=== PATIENT | male | born 1975 | race Two or more races ===

== ENCOUNTER 2017-07-29 10:46 | Inpatient (IN) | payer BC ==
[2017-07-23 12:40] VITALS: BMI 36.9
[2017-07-29] MEDS ORDERED: PROPOFOL 20 ML ONE (15:08)
[2017-07-29] MEDS ORDERED: DEXAMETHASONE SOD PHOSPHATE/PF 10 MG/ML SDV ONE (15:34)
[2017-07-29] MEDS ORDERED: BUPIVACAINE HCL/PF (5 MG/ML) 30 ML VIAL IJ ONE (15:34)
[2017-07-29] MEDS ORDERED: MIDAZOLAM HCL 2 MG/2 ML SINGLE DOSE VIAL ONE ×3 (15:34→17:19)
[2017-07-29] MEDS ORDERED: ONDANSETRON 4 MG/2 ML VIAL IVPUSH PRN ×2 (16:20→19:43)
[2017-07-29] MEDS ORDERED: oxyCODONE HCL 5 MG TABLET PO PRN (16:20)
[2017-07-29] MEDS ORDERED: LACTATED RINGERS SOLUTION 1,000 ML IV SCH ×2 (16:30→20:00)
[2017-07-29] MEDS ORDERED: VANCOMYCIN 1,000 MG VIAL (RESTRICTED TO ID ONLY) ONE (16:35)
[2017-07-29] MEDS ORDERED: ceFAZolin SODIUM 1 GM VIAL ONE (16:35)
[2017-07-29] MEDS ORDERED: DEXAMETHASONE SOD PHOSPHATE 4 MG/1 ML VIAL ONE (16:46)
[2017-07-29] MEDS ORDERED: ONDANSETRON 4 MG/2 ML VIAL ONE (16:46)
[2017-07-29] MEDS ORDERED: KETOROLAC TROMETHAMINE 30 MG/1 ML VIAL ONE (16:46)
[2017-07-29] MEDS ORDERED: TRANEXAMIC ACID 1000 MG/10 ML VIAL ONE (17:57)
[2017-07-29] MEDS ORDERED: BENZOIN/ALOE VERA/STORAX/TOLU 58 ML BOTTLE ONE (19:13)
--- NOTE | 2017-07-29 19:38 | OP ---
Operative Note - Note: Operative Date: 07/29/17 Pre-Operative Diagnosis: Left knee DJD w/valgus deformity Operation: Left distal femur medial closing wedge osteotomy. Post-Operative Diagnosis: Same as Pre-op Surgeon: Eyad Moya Bailiff: Brandt Moya (Co-Surgeon) Anesthesiologist/AUDIO EXPERIENCE EXPERT: Ap Cook Anesthesia: Spinal Estimated Blood Loss (mls): 0 Drains & Tubes with Location: 1 x deep hemovac Operative Report Dictated: Yes
--- NOTE | 2017-07-29 19:42 | PN ---
Progress Note (short form) - Note Progress Note: 42M s/p left distal femur medial closing wedge osteotomy & fixation POD #0. -Pain control. -DVT PPx: ASA 81mg POD BID x 6 weeks; RLE MATILDE, SCD. -Incentive spirometry. -PT/OT/Rehab, OOB. -STRICT NWB LLE. -Left knee immobilizer; STRICTLY NO RANGE OF MOTION LEFT KNEE. -f/u drain output. -f/u post-op TOV. -f/u AM labs. -Crutch training. -Care per medical hospitalist team. -Discharge planning. Eyad Moya MD (Orthopaedic Surgery).
[2017-07-29] MEDS ORDERED: MAGNESIUM HYDROX 2400MG/30ML ORAL SUSPENSION 30 ML CUP PO PRN (19:43)
[2017-07-29] MEDS ORDERED: MAG HYDROX/AL HYDROX/SIMETH 30 ML UNIT-DOSE CUP PO PRN (19:43)
[2017-07-29] MEDS ORDERED: ACETAMINOPHEN 325 MG TABLET (FP) ONE (19:44)
[2017-07-29] MEDS: SENNOSIDES/DOCUSATE COMBO (SENNA PLUS) TABLET (UD) PO SCH (21:41)
[2017-07-29] MEDS: oxyCODONE HCL 10 MG SUSTAINED ACTING TABLET PO SCH (21:42)
[2017-07-29] MEDS: ASPIRIN 81 MG CHEWABLE TABLETS PO SCH (21:49)
[2017-07-29] MEDS ORDERED: ASPIRIN 325 MG TABLET PO SCH (22:00)
[2017-07-30] MEDS: ACETAMINOPHEN 325 MG TABLET (FP) PO SCH ×5 (00:15→18:15)
[2017-07-30] MEDS: oxyCODONE HCL 5 MG TABLET PO PRN ×5 (02:05→20:36)
[2017-07-30] MEDS: CEFAZOLIN 2 GM/D5W 2 GM/50 ML ML IVPB SCH ×2 (02:07→09:46)
[2017-07-30] MEDS ORDERED: VANCOMYCIN 1,000 MG in DEXTROSE 5%-WATER - 250 ML IVPB ONE (06:00)
[2017-07-30 08:07] LABS: ANION GAP 5 (8-16); BLOOD UREA NITROGEN 19 mg/dl (7-18); CALCIUM 9.2 mg/dl (8.4-10.2); CHLORIDE 104 mmol/L (98-107); CO2 24 mmol/L (22-28); CREATININE 0.9 mg/dl (0.6-1.3); GLUCOSE,RANDOM 278 mg/dl (74-106); HEMATOCRIT 36.4 % (35.4-49); HEMOGLOBIN 12.2 GM/dl (11.7-16.9); MCH 26.3 pg (25.7-33.7); MCHC 33.5 g/dl (32.0-35.9); MEAN CELL VOLUME 78.5 fl (80-96); MEAN PLT VOLUME 9.5 fl (7.5-11.1); PLATELET COUNT 285 K/MM3 (134-434); POTASSIUM 4.3 mmol/L (3.5-5.1); RBC 4.63 M/mm3 (4.00-5.60); RDW 15.5 % (11.9-15.9); SODIUM 133 mmol/L (136-145); WHITE BLOOD COUNT 19.1 K/mm3 (4.0-10.8)
--- NOTE | 2017-07-30 08:10 | OP ---
DATE OF OPERATION: 07/29/2017 SURGEON: Eyad Moya MD CO-SURGEON: Brandt Moya MD PREOPERATIVE DIAGNOSIS: Osteoarthritis, left knee, with 40-degree valgus deformity. POSTOPERATIVE DIAGNOSIS: Osteoarthritis, left knee, with 40-degree valgus deformity. OPERATION PERFORMED: Left supracondylar osteotomy. ANESTHESIA: Spinal, epidural with adductor canal block and associated conscious sedation. ANTIBIOTICS GIVEN: Kefzol 2 g, vancomycin 1 g preoperative. PROCEDURE: Patient correctly identified, brought to the operating room. Left lower extremity was prepped and draped in the routine manner with Betadine scrub solution, wiped off with alcohol, DuraPrep applied. A free drape was applied. The incision was made just medial to the patella margin, extending longitudinally just medial to the tibial tubercle. The dissection was taken in the plane subfascially to the level of the soft vastus area and the entire medial vastus muscle was lifted and the distal end of the medial flare of the femur was freed of soft tissue. The distal medial femoral shaft clearly identified. To start, under x-ray guidance control, a guide pin was placed parallel to the joint line, that is parallel to the actual femoral condyles; the deficient one being on the lateral side. The seating chisel which preplanned was for a size 65 blade and 15-mm offset, 90-degree blade plate. The seating chisel was inserted after drilling 3 holes in the medial femoral condyle , connecting them up, to enable insertion of the seating blade. The blade was seated parallel to the actual femoral bone bed and into the line parallel to the guide pin that had already been inserted. The seating chisel was seated all the way. The appropriate implant device, which was, as mentioned above, a 90-degree, 15-mm, [id number] blade, was inserted 3[address] The osteotomy was then performed as follows. The first limb of the osteotomy just at the flare of the metaphysis was cut just short of the lateral bony surface. A new guide pin was placed in the femoral shaft 90 degrees to the shaft of the femur, and the second component seating of the oscillating saw, that is the proximal osteotomy cut, was made parallel to this pin and guided to meet just short of the lateral cortex; the entire wedge of bone being taken out without any difficulty. Once the cuts had been made, the femur was still intact because of the lateral cortex being intact, and the blade plate was then driven all the way into the distal femoral component. At that point, the limb was then corrected from valgus into a neutral-aligned position, and the shaft of the blade plate device now snug up against the medial femoral condyle. This was held with a Verbrugge clamp, and using dynamic compression, the plate was fixed to the bone bed appropriate with AO screws. One additional screw was seated into the distal femoral bone bed. The osteotomy site closed down beautifully. The limb alignment was excellent. There was no rotational malalignment. The wounds were thoroughly lavaged. Closure was as follows: The fascia and muscle 1 Vicryl, subcutaneous 1 and 2-0 Vicryl, skin 3-0 Monocryl with Steri-Strips. Drainage: 1/8-inch Hemovac brought out laterally x1. No complications. Operation went well. MD ELIAZAR Kennedy/[id number] MTDD
--- NOTE | 2017-07-30 08:46 | PN ---
Progress Note (short form) - Note Progress Note: 42M POD1 s/p supracondylar osteotomy with fixation left femur under spinal anesthetic with peripheral nerve blocks for post operative pain relief. Pt states that pain is well controlled and reports no anesthetic complications. AVSS. Sensory and motor function intact in bilateral lower extremities. Continue current regimen.
[2017-07-30] MEDS: VALSARTAN 160 MG TABLET (UD) PO SCH (09:28)
[2017-07-30] MEDS: SENNOSIDES/DOCUSATE COMBO (SENNA PLUS) TABLET (UD) PO SCH ×2 (09:28→22:13)
[2017-07-30] MEDS: oxyCODONE HCL 10 MG SUSTAINED ACTING TABLET PO SCH ×2 (09:29→22:07)
[2017-07-30] MEDS: PANTOPRAZOLE 40 MG TABLET (FP) PO SCH (09:29)
[2017-07-30] MEDS: ASPIRIN 81 MG CHEWABLE TABLETS PO SCH ×2 (09:29→22:08)
--- NOTE | 2017-07-30 09:58 | HP ---
HISTORY OF PRESENT ILLNESS patient is a obese 42 y/o male with a past medical history of hypertension, NIDDM, GERD, asthma, and osteoarthritis. past surgical history gastric bypass. Patient was admitted for elective s/p left distal femur medial closing wedge osteotomy & fixation, Dr Moya, 07/29/17. 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 Smoking: none Alcohol:none Drugs: none REVIEW OF SYSTEMS CONSTITUTIONAL: Absent: fever, chills, diaphoresis, generalized weakness, malaise, loss of appetite, weight change HEENT: Absent: rhinorrhea, nasal congestion, throat pain, throat swelling, difficulty swallowing, mouth swelling, ear pain, eye pain, visual changes CARDIOVASCULAR: Absent: chest pain, syncope, palpitations, irregular heart rate, lightheadedness , peripheral edema RESPIRATORY: Absent: cough, shortness of breath, dyspnea with exertion, orthopnea, wheezing, stridor, hemoptysis GASTROINTESTINAL: Absent: abdominal pain, abdominal distension, nausea, vomiting, diarrhea, constipation, melena, hematochezia GENITOURINARY: Absent: dysuria, frequency, urgency, hesitancy, hematuria, flank pain, genital pain MUSCULOSKELETAL: Present: left lower extremity pain Absent: myalgia, arthralgia, joint swelling, back pain, neck pain SKIN: Absent: rash, itching, pallor HEMATOLOGIC/IMMUNOLOGIC: Absent: easy bleeding, easy bruising, lymphadenopathy, frequent infections ENDOCRINE: Absent: unexplained weight gain, unexplained weight loss, heat intolerance, cold intolerance NEUROLOGIC: Absent: headache, focal weakness or paresthesias, dizziness, unsteady gait, seizure, mental status changes, bladder or bowel incontinence PSYCHIATRIC: Absent: anxiety, depression, suicidal or homicidal ideation, hallucinations. PHYSICAL EXAMINATION: Vital Signs Temperature 97.4 F L 07/30/17 06:00 Pulse Rate 105 H 07/30/17 06:00 Respiratory Rate 18 07/30/17 06:00 Blood Pressure 130/92 07/30/17 06:00 O2 Sat by Pulse Oximetry (%) 100 07/30/17 08:28 GENERAL: Awake, alert, and fully oriented, in no acute distress. HEAD: Normal with no signs of trauma. EYES: Pupils equal, round and reactive to light, extraocular movements intact, sclera anicteric, conjunctiva clear. No lid lag. EARS, NOSE, THROAT: Ears normal, nares patent, oropharynx clear without exudates. Moist mucous membranes. NECK: Normal range of motion, supple without lymphadenopathy, JVD, or masses. LUNGS: Breath sounds equal, clear to auscultation bilaterally. No wheezes, and no crackles. No accessory muscle use. HEART: Regular rate and rhythm, normal S1 and S2 without murmur, rub or gallop. ABDOMEN: Soft, nontender, not distended, normoactive bowel sounds, no guarding, no rebound, no masses. No hepatomegaly or splenomegaly. MUSCULOSKELETAL: Normal range of motion at all joints. No bony deformities or tenderness. No CVA tenderness. UPPER EXTREMITIES: 2+ pulses, warm, well-perfused. No cyanosis. No clubbing. No peripheral edema. LOWER EXTREMITIES: 2+ pulses, warm, well-perfused. No calf tenderness. No peripheral edema. LEFT LOWER EXTREMITY: knee immobilizer in placed, scd/sterling, hemovac noted scant sangenous drainage, less than 3 second capillary refill, + 3 pedal pulse NEUROLOGICAL: Cranial nerves II-XII intact. Normal speech. Normal gait. PSYCHIATRIC: Cooperative. Good eye contact. Appropriate mood and affect. SKIN: Warm, dry, normal turgor, no rashes or lesions noted, normal capillary refill. CBC,CMP WBC 19.1 K/mm3 (4.0-10.8) H 07/30/17 07:25 RBC 4.63 M/mm3 (4.00-5.60) 07/30/17 07:25 Hgb 12.2 GM/dl (11.7-16.9) 07/30/17 07:25 Hct 36.4 % (35.4-49) 07/30/17 07:25 MCV 78.5 fl (80-96) L 07/30/17 07:25 MCH 26.3 pg (25.7-33.7) 07/30/17 07:25 MCHC 33.5 g/dl (32.0-35.9) 07/30/17 07:25 RDW 15.5 % (11.9-15.9) 07/30/17 07:25 Plt Count 285 K/MM3 (134-434) 07/30/17 07:25 MPV 9.5 fl (7.5-11.1) 07/30/17 07:25 Sodium 133 mmol/L (136-145) L 07/30/17 07:25 Potassium 4.3 mmol/L (3.5-5.1) 07/30/17 07:25 Chloride 104 mmol/L (98-107) 07/30/17 07:25 Carbon Dioxide 24 mmol/L (22-28) 07/30/17 07:25 Anion Gap 5 (8-16) L 07/30/17 07:25 BUN 19 mg/dl (7-18) H 07/30/17 07:25 Creatinine 0.9 mg/dl (0.6-1.3) 07/30/17 07:25 POC Glucometer 155 UNITS (80-120) 07/29/17 19:39 Random Glucose 278 mg/dl (74-106) H 07/30/17 07:25 Calcium 9.2 mg/dl (8.4-10.2) 07/30/17 07:25 Active Medications Generic Name Dose Route Start Last Admin Trade Name Freq PRN Reason Stop Dose Admin Acetaminophen 650 mg 07/29/17 16:30 07/30/17 06:10 Tylenol - PO 650 mg Q6HPO JAY Administration Al Hydroxide/Mg Hydroxide 30 ml 07/29/17 19:43 Mylanta Oral Suspension - PO Q4H PRN DYSPEPSIA Aspirin 81 mg 07/29/17 22:00 07/30/17 09:29 Asa - PO 81 mg BID JAY Administration Cefazolin Sodium/Dextrose 2 gm in 50 mls @ 100 mls/hr 07/30/17 02:00 09:46 Ancef 2 Gm Premixed Ivpb - IVPB 07/30/17 10:29 100 mls/hr Q8H-IV JAY Administration Lactated Ringer's 1,000 mls @ 125 mls/hr 07/29/17 20:00 07/29/17 20:30 Lactated Ringers Solution IV 07/30/17 19:59 125 mls/hr ASDIR JAY Administration Magnesium Hydroxide 30 ml 07/29/17 19:43 Milk Of Magnesia - PO DAILY PRN CONSTIPATION Non-Formulary Medication 25 mg 07/30/17 10:00 Empagliflozin [Jardiance] PO DAILY JAY Non-Formulary Medication 290 mcg 07/30/17 10:00 Linaclotide [Linzess] PO DAILY [facility] Ondansetron HCl 4 mg 07/29/17 19:43 Zofran Injection IVPUSH Q6H PRN NAUSEA Oxycodone HCl 5 mg 07/29/17 16:20 Roxicodone - PO Q3H PRN PAIN LEVEL 1-5 Oxycodone HCl 10 mg 07/29/17 16:20 07/30/17 08:00 Roxicodone - PO 10 mg Q3H PRN Administration PAIN LEVEL 6-10 Oxycodone HCl 10 mg 07/29/17 22:00 07/30/17 09:29 Oxycontin - PO 08/01/17 16:21 10 mg BID JAY Administration Pantoprazole Sodium 40 mg 07/30/17 10:00 07/30/17 09:29 Protonix - PO Not Given DAILY [facility] Senna/Docusate Sodium 2 tablet 07/29/17 22:00 07/30/17 09:28 Pericolace - PO 2 tablet BID JAY Administration Valsartan 320 mg 07/30/17 10:00 07/30/17 09:28 Diovan - PO 320 mg DAILY JAY Administration ASSESSMENT/PLAN: 1) MS s/p left distal femur medial closing wedge osteotomy & fixation, POD #1 (Dr Moya) - prn pain medication - physical therapy as per the orthopedist, Dr Moya, strict NWB LLE with no range of motion, crutch walking only - knee immobilizer to remain in place 2) endo DM - continue jardinence (home medication), start fingersticks achs with regular insulin sliding scale 3) cardiovascular hypertension - continue diovan, b/p at goal f/e/n - low sodium diet - replete lytes prn ppx - asa - protonix dispo: requires inpatient admission Visit type - Case Type Case Type: Scheduled Admission - Emergency Emergency Visit: No - New patient This patient is new to me today: No - Critical Care Critical Care patient: No
[2017-07-30] MEDS ORDERED: INSULIN (NOVOLOG) ASPART 100 UNITS/ML 10ML VIAL ONE ×2 (11:51→16:22)
[2017-07-30] MEDS ORDERED: PT OWN MED DRAWER 7, Y5N ONE ×3 (11:52→20:40)
[2017-07-30] MEDS: INSULIN SLIDING SCALE (NOVOLOG) 1 VIAL SQ SCH ×3 (11:57→22:08)
[2017-07-30] MEDS: (Linaclotide [Linzess] 290 MCG) PO SCH (11:57)
[2017-07-31] MEDS: oxyCODONE HCL 5 MG TABLET PO PRN ×4 (03:15→11:25)
[2017-07-31] MEDS: ACETAMINOPHEN 325 MG TABLET (FP) PO SCH ×2 (06:16)
[2017-07-31] MEDS ORDERED: PT OWN MED DRAWER 7, Y5N ONE (06:34)
[2017-07-31] MEDS: INSULIN SLIDING SCALE (NOVOLOG) 1 VIAL SQ SCH (06:36)
[2017-07-31 08:48] LABS: HEMATOCRIT 32.3 % (35.4-49); MCH 26.9 pg (25.7-33.7); MEAN CELL VOLUME 79.1 fl (80-96); PLATELET COUNT 232 K/MM3 (134-434); RBC 4.08 M/mm3 (4.00-5.60); RDW 15.7 % (11.9-15.9); WHITE BLOOD COUNT 13.7 K/mm3 (4.0-10.8)
--- NOTE | 2017-07-31 11:08 | DS ---
Physical Exam: SUBJECTIVE: Patient seen and examined, reports feeling well, denies any chest pain or breath OBJECTIVE:patient is a obese 42 y/o male with a past medical history of hypertension, NIDDM, GERD, asthma, and osteoarthritis. past surgical history gastric bypass. Patient was admitted for elective s/p left distal femur medial closing wedge osteotomy & fixation, Dr Alfonso, 07/29/17. Vital Signs Period Temp Pulse Resp BP Sys/Payne Pulse Ox Last 24 Hr 98.1 F-99.4 F 85-97 16-19 114-138/67-81 97-100 PHYSICAL EXAM GENERAL: The patient is awake, alert, and fully oriented, in no acute distress. HEAD: Normal with no signs of trauma. EYES: PERRL, extraocular movements intact, sclera anicteric, conjunctiva clear. ENT: Ears normal, nares patent, oropharynx clear without exudates, moist mucous membranes. NECK: Trachea midline, full range of motion, supple. LUNGS: Breath sounds equal, clear to auscultation bilaterally, no wheezes, no crackles, no accessory muscle use. HEART: Regular rate and rhythm, S1, S2 without murmur, rub or gallop. ABDOMEN: Soft, nontender, nondistended, normoactive bowel sounds, no guarding, no rebound, no hepatosplenomegaly, no masses. EXTREMITIES: 2+ pulses, warm, well-perfused, no edema. LEFT LOWER EXTREMITY: dressing intact, hemovac removed,no induration no erthema noted, less than 3 second capillary refill, +3 pedal pulse, post op knee brace intact. NEUROLOGICAL: Cranial nerves II through XII grossly intact. Normal speech, gait not observed. PSYCH: Normal mood, normal affect. SKIN: Warm, dry, normal turgor, no rashes or lesions noted. LABS Laboratory Results - last 24 hr 07/30/17 07/30/17 07/30/17 11:31 16:19 21:01 WBC RBC Hgb Hct MCV MCH MCHC RDW Plt Count MPV POC Glucometer 298 239 163 07/31/17 07/31/17 06:25 07:45 WBC 13.7 H RBC 4.08 Hgb 11.0 L Hct 32.3 L MCV 79.1 L MCH 26.9 MCHC 34.0 RDW 15.7 Plt Count 232 MPV 9.0 POC Glucometer 131 HOSPITAL COURSE: The patient was admitted to the Med-Surg Unit after an elective s/p left distal femur medial closing wedge osteotomy & fixation. On post operative day 1, the patient ambulated the hallways with assistance. Narcotic and non-narcotic pain management control was achieved with an oral and IV approach. POD #2 , the surgical drain was removed fully intact and without incident. Sally-operative IV ABX were administered. DVT prophylaxis was achieved with SCDs and early ambulation, strict NWB LLE with no range of motion, crutch walking only. patient has a past medical history of DM, jardinence (home medication), start fingersticks achs with regular insulin sliding scale. Patient has medical history of hypertension, diovan was continued, b/p at goal The patient ambulated with Physical Therapy and he will receive home physical therapy. Narcotic scripts were checked with [facility] Reference #: [id number], prior to escibe. The discharge instructions and an oral pain management plan were reviewed with the patient. All questions answered. Above plan discussed with Dr. Alfonso and agreed Date of Admission:07/29/17 Date of Discharge: 07/31/17 Minutes to complete discharge: 45 Discharge Summary Reason For Visit: UNILATERAL OA LEFT KNEE Condition: Improved - Instructions Diet, Activity, Other Instructions: POSTOP INSTRUCTIONS strict non weight bearing to the left lower extremity at all times, no range of motion to the left knee, keep left lower extremity in the brace at all times you will have swelling to the leg which is normal for the next 2 to 3 days, keep extremity elevated as much as possible throughout the day when you are at rest apply MATILDE, graduated compression stockings daily, remove for hygiene only apply cold packs to affected area for 15 minutes every 2 hours you may ambulate as tolerated-->encourage self care at least every 2 to 3 hours while awake with a walker or crutches maintain dressing intact to wound the dressing will be removed by Dr Alfonso shower with dressing in place, if dressing integrity is compromised, remove and apply dry sterile gauze and notify Dr Alfonso. DO NOT SHOWER UNLESS DR ALFONSO APPROVES. contact the office for any changes in your condition (for example-->fever, greater than 102 degress, excessive bleeding from operative site, purulent drainage, severe swelling or pain) GO TO THE EMERGENCY ROOM IF THERE IS A MEDICAL EMERGENCY PLEASE FOLLOW UP WITH DR ALFONSO NEXT SUNDAY, AUGUST 06, 2017, PLEASE CALL THE OFFICE FOR AN APPOINTMENT Referrals: Brandt Alfonso MD [Staff Physician] - Disposition: VNS/HOME HEALTH CARE - Home Medications Comprehensive Discharge Medication List: Ambulatory Orders Empagliflozin [Jardiance] 25 mg PO DAILY 07/23/17 Linaclotide [Linzess] 290 mcg PO DAILY 07/23/17 Valsartan 320 mg PO DAILY 07/23/17 This patient is new to me today: No Emergency Visit: No Critical Care patient: No - Discharge Referral Referred to [facility] Med P.C.: No
[2017-07-31] MEDS: ASPIRIN 81 MG CHEWABLE TABLETS PO SCH (11:25)
[2017-07-31] MEDS: VALSARTAN 160 MG TABLET (UD) PO SCH (11:26)
[2017-07-31] MEDS: oxyCODONE HCL 10 MG SUSTAINED ACTING TABLET PO SCH (11:26)
[2017-07-31] MEDS: SENNOSIDES/DOCUSATE COMBO (SENNA PLUS) TABLET (UD) PO SCH (11:26)
[2017-07-31] MEDS: PANTOPRAZOLE 40 MG TABLET (FP) PO SCH (11:27)
[2017-07-31] MEDS: (Linaclotide [Linzess] 290 MCG) PO SCH (11:32)
[2017-07-31 11:56] VITALS: BP 136/97; PULSE 98; TEMP 98
--- NOTE | 2017-08-01 09:23 | PN ---
Progress Note (short form) - Note Progress Note: A/P: 42M s/p left distal femur medial closing wedge osteotomy & fixation POD #3. Pain well controlled. No acute events overnight. (-) Overnight history of chest pain, shortness of breath, nausea, vomiting, chills, & sweats. (+) Voiding; (+) Flatus; (+) BM. AVSS. All labs reviewed. PE: AAO x 3, NAD. L Knee: Dressing C/D/I. Drain intact & in place. NVI distally. A/P: 42M s/p left distal femur medial closing wedge osteotomy & fixation POD #3. -Pain control. -DVT PPx: ASA 81mg POD BID x 6 weeks; RLE MATILDE, SCD. -Incentive spirometry. -PT/OT/Rehab, OOB. -STRICT NWB LLE. -Left knee immobilizer; STRICTLY NO RANGE OF MOTION LEFT KNEE. -f/u AM labs. -Crutch training. -Care per medical hospitalist team. -Discharge planning. Brandt Moya MD (Orthopaedic Surgery).
== END 2017-07-31 12:11 | disposition home health service (06) | DRG 482 ==
LOC: FM/S 12:27
PROVIDERS: ADMIT Orthopaedic Surgery Orthopaedic Surgery of the Spine; ATTEND Orthopaedic Surgery Orthopaedic Surgery of the Spine
PROC: 0QSC04Z Reposition Left Lower Femur with Internal Fixation Device, Open Approach (ICD-10-PCS; principal; 2017-07-29 17:35)
DX: M17.12 Unilateral primary osteoarthritis, left knee (principal); M21.062 Valgus deformity, not elsewhere classified, left knee; E11.9 Type 2 diabetes mellitus without complications; I10 Essential (primary) hypertension; J45.909 Unspecified asthma, uncomplicated; K21.9 Gastro-esophageal reflux disease without esophagitis; Z98.84 Bariatric surgery status
CPT/HCPCS: 36415; 73552-TC-LT-FY; 76001-TC-FY; 80048; 82962; 85027; 87389; 94010; 94760; 97116-GP

== ENCOUNTER 2022-07-18 09:57 | Day surgery (SDC) | payer BC ==
[2022-07-09 12:04] VITALS: BMI 34.5
[2022-07-18] MEDS ORDERED: FENTANYL CITRATE/PF 50 MCG/ML VIAL ONE (12:09)
[2022-07-18] MEDS ORDERED: MIDAZOLAM HCL 2 MG/2 ML SINGLE DOSE VIAL ONE (12:10)
[2022-07-18] MEDS ORDERED: ACETAMINOPHEN INJECTION 100 ML IVPB ONE (12:10)
[2022-07-18] MEDS ORDERED: ROPIVACAINE HCL 0.5% 30ML VIAL ONE (12:10)
[2022-07-18] MEDS ORDERED: PROPOFOL 20 ML ONE (12:40)
[2022-07-18] MEDS ORDERED: TRANEXAMIC ACID 1000 MG/10 ML VIAL ONE (12:53)
[2022-07-18] MEDS ORDERED: ceFAZolin SODIUM 1 GM VIAL ONE (12:55)
[2022-07-18] MEDS ORDERED: DEXAMETHASONE SOD PHOSPHATE 4 MG/1 ML VIAL ONE (12:59)
[2022-07-18] MEDS ORDERED: ONDANSETRON 4 MG/2 ML VIAL ONE (12:59)
[2022-07-18] MEDS ORDERED: ONDANSETRON 4 MG/2 ML VIAL IVPUSH PRN (14:58)
[2022-07-18] MEDS ORDERED: oxyCODONE HCL 5 MG TABLET PO PRN (14:58)
[2022-07-18] MEDS ORDERED: LACTATED RINGERS SOLUTION 1,000 ML IV SCH (15:00)
[2022-07-18 15:36] VITALS: RESP 16
[2022-07-18 16:19] VITALS: TEMP 98.1
[2022-07-18 16:36] VITALS: BP 134/84; PULSE 88
[2022-07-19] MEDS ORDERED: PATIENT'S OWN MEDICATION (NON-FORMULARY) (Empagliflozin 25 MG Tablet) PO SCH (10:00)
[2022-07-19] MEDS ORDERED: VALSARTAN 160 MG TABLET PO SCH (10:00)
== END 2022-07-18 16:30 | disposition home or self-care (01) ==
LOC: FASU 09:57
PROVIDERS: ATTEND Orthopaedic Surgery Orthopaedic Surgery of the Spine
PROC: 0LQ10ZZ Repair Right Shoulder Tendon, Open Approach (ICD-10-PCS; 2022-07-18)
PROC: 0PB90ZZ Excision of Right Clavicle, Open Approach (ICD-10-PCS; principal; 2022-07-18 13:17)
PROC: 0MN10ZZ Release Right Shoulder Bursa and Ligament, Open Approach (ICD-10-PCS; 2022-07-18 13:17)
DX: M75.41 Impingement syndrome of right shoulder (principal); M75.121 Complete rotator cuff tear or rupture of right shoulder, not specified as traumatic
CPT/HCPCS: 82962; 88304-TC; 88311-TC; 94760; C1713